=== PATIENT | male | born 1945 | race Caucasian/White ===

== ENCOUNTER 2017-02-07 09:11 | Day surgery (SDC) | payer OTHER ==
[~2017-02-07 09:11] MED LIST: Buffered Lidocaine 1% SYRIN* 3 ML/SYR SYRINGE INTRADERM ONE
[2017-02-07] MEDS ORDERED: Lidocaine 2% PF * 5 ML VIAL ONE (12:14)
[2017-02-07] MEDS ORDERED: Propofol* 10 MG/ML 20 ML BTL IV PUSH ONE (12:14)
[2017-02-07] MEDS ORDERED: Flurbiprofen 0.03% OPTH.SOL* 2.5 ML BTL ONE (12:51)
[2017-02-07] MEDS ORDERED: acetaZOLAMIDE TAB* 250 MG ONE (12:51)
[2017-02-07] MEDS ORDERED: Proparacaine 0.5% OPHTH.SOL* 15 ML BTL ONE (12:51)
[2017-02-07] MEDS ORDERED: Cyclopentolate 1% OPTH.SOL* 2 ML BTL ONE (12:51)
[2017-02-07] MEDS ORDERED: Lidocaine 2% EPI 1:200000 MPF* 20 ML VIAL ONE (12:51)
[2017-02-07] MEDS ORDERED: Povidone Iodine 5% OPTH* 30 ML BTL ONE (12:51)
[2017-02-07] MEDS ORDERED: Lidocaine 1% MPF* 2 ML VIAL ONE (12:51)
[2017-02-07] MEDS ORDERED: Phenylephrine 2.5% OPTH.SOL* 2 ML BTL ONE (12:51)
[2017-02-07] MEDS ORDERED: Neomycin/Polymy/Dex OPTH.SUSP* MAXITROL 0.1% 5 ML ONE (12:51)
[2017-02-07 12:53] VITALS: BP 106/86
--- NOTE | 2017-02-07 15:12 | OP ---
DATE OF OPERATION: 02/07/2017 - [facility] DATE OF : 1945. SURGEON: Isrrael Dangelo M.D. PREOPERATIVE DIAGNOSIS: Cataract right eye. POSTOPERATIVE DIAGNOSIS: Cataract right eye. OPERATIVE PROCEDURE: Phacoemulsification right eye with IOL. DESCRIPTION OF PROCEDURE: The patient was brought to the operating room after being given 1/2% Alcaine with epinephrine drops in the preoperative area. The eye was prepped and draped in the usual sterile fashion. Sterile drape and eyelid speculum were placed. Again, topical 1/2% Alcaine with epinephrine was given. A paracentesis incision was made at the 9 o'clock position with the No.75 blade. Clear cornea incision 2.2 x 2.2-mm was created at the 12 o'clock position starting at the anterior limbus using the 2.2-mm keratome. The anterior chamber was irrigated with 0.4 mL of 1% non-preservative intracameral lidocaine and filled with DisCoVisc. A capsulorrhexis was completed using the cystotome and the Utrata forceps. Hydrodissection was performed with balanced salt solution. The lens nucleus was removed with the Phacoemulsification handpiece without incident. Cortex was removed with the irrigation-aspiration handpiece. The capsular bag was re-inflated using DisCoVisc and an [id number] 19.5 implant was inserted with the shooter. The pupil was only about 4 mm, so a Malyugin ring was used to dilate the pupil prior to capsulorrhexis and removed after insertion of the lens. The irrigation-aspiration handpiece was used to remove all residual DisCoVisc. The eye was refilled with balanced salt solution and the wound checked and found to be watertight. Topical Maxitrol drops were given. Indication for complex cataract surgery: Iris abnormalities requiring pupil dilation device. [id number]/[facility] #: [id number] TEJA
== END 2017-02-07 12:59 | disposition home or self-care (01) ==
LOC: OREAST 09:11
PROVIDERS: ATTEND Specialist
DX: H25.811 Combined forms of age-related cataract, right eye (principal); Q13.2 Other congenital malformations of iris; H02.412 Mechanical ptosis of left eyelid; H53.022 Refractive amblyopia, left eye; I10 Essential (primary) hypertension; I25.10 Atherosclerotic heart disease of native coronary artery without angina pectoris; J44.9 Chronic obstructive pulmonary disease, unspecified; F17.210 Nicotine dependence, cigarettes, uncomplicated
CPT/HCPCS: A9270-GY; J2704; V2632

== ENCOUNTER 2017-07-29 13:52 | Emergency (ER) | payer OTHER ==
--- NOTE | 2017-07-29 15:57 | RAD ---
Indication: RIGHT hip pain radiating to the RIGHT leg. Comparison: March 06, 2016 CT. Technique: Multidetector CT pelvis without contrast. Multiplanar reformation with bone algorithm. Report: No suspicious finding of the visualized pelvic viscera. Partially visualized aorta bilateral iliac stent graft appears grossly unchanged in position. Negative for free pelvic fluid. Negative for lymphadenopathy within the [id number]. Negative for proximal femur or pelvic fracture. Normal articular alignment. Bilateral mild hip joint osteophytosis and moderate RIGHT and mild LEFT superior joint space narrowing. No suggestion of hip joint effusions. Mild degenerative arthropathy at the pubic symphysis. Minimal osteophytosis at the sacroiliac joints. IMPRESSION: 1. No CT evidence for proximal femur or pelvic fracture or traumatic malalignment. 2. 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 3. Refer to dedicated lumbar sacral spine exam of the same date for description of lumbar sacral spine findings.
--- NOTE | 2017-07-29 16:04 | RAD ---
Indication: RIGHT side hip pain radiating down the RIGHT leg. Comparison: March 06, 2016 CT. Technique: Noncontrast CT lumbar sacral spine. Multiplanar reformation. Report: Aortic bilateral iliac stent graft extends from above the level of the renal arteries and appears unchanged in position. Bilateral renal artery stents are unchanged in position. Marked atrophy of the RIGHT kidney. Partially visualized normal sized LEFT kidney without obstructive uropathy. Negative for retroperitoneal hematoma. No visualized adenopathy. Negative for fracture or spondylolysis at any level. T12-L1: Mild degenerative spondylosis. Negative for acquired spinal stenosis. L1-L2: Mild degenerative spondylosis and facet joint osteoarthritis. Small Schmorl node endplate herniations. Negative for acquired spinal stenosis. L2-L3: Moderately severe disc space narrowing and minimal grade 1 degenerative retrolisthesis. Mild dorsal disc bulge and osteophytes as well as facet joint osteoarthritis. Resulting mild RIGHT and moderate LEFT foraminal stenosis without significant change. L3-L4: Moderate disc space narrowing. Mild dorsal disc bulge and vertebral endplate osteophytes and facet joint osteoarthritis. Alteration in the shape of the thecal sac without significant resulting central canal stenosis. Mild RIGHT and moderate LEFT foraminal stenosis without significant change. L4-L5: Mild disc space narrowing. Annular disc bulge and posterior element osteoarthritis results in mild acquired central canal stenosis without significant change. Moderate bilateral foraminal stenosis without significant change. L5-S1: Moderately severe disc space narrowing. Partially calcified small broad dorsal disc protrusion without change. Negative for central canal stenosis. Degenerative spondylosis and facet joint osteoarthritis results in moderate RIGHT and severe LEFT foraminal stenosis without change. IMPRESSION: 1. Negative for fracture. 2. No significant change in minimal degenerative grade 1 retrolisthesis at L2-L3. 3. Multilevel degenerative spondylosis and facet joint osteoarthritis with resulting foraminal greater than central canal stenosis as described level by level. No significant interval change.
--- NOTE | 2017-07-29 17:08 | ED ---
Vicky Tapia Abhishek, scribed for Tressa Lentz MD on 07/29/17 at 1648 . Lower Extremity - HPI Summary HPI Summary: This patient is a 72 year old M presenting to [facility] with a chief complaint of hip pain since the last 10 days (1200). The CC is described as radiating from the hip to the jamison to the leg and sudden onset as well as constant. The patient rates the pain 9/10 in severity. Symptoms aggravated by movement. Symptoms alleviated by nothing. Patient states he has difficulty walking. - History of Current Complaint Chief Complaint: EDHipPelvisInjury Stated Complaint: RT SIDE HIP/THIGH/ANKLE PAIN Time Seen by Provider: 07/29/17 14:09 Hx Obtained From: Patient Onset of Pain: Days - 10 days ago Onset/Duration: Still Present Severity Initially: Severe Severity Currently: Severe Pain Intensity: 9 Pain Scale Used: 0-10 Numeric Timing: Constant Location: Radiates To - the Associated Signs And Symptoms: Positive: Negative Aggravating Factor(s): Ambulation, Movement Alleviating Factor(s): Nothing - Allergies/Home Medications Allergies/Adverse Reactions: Allergies Allergy/AdvReac Type Severity Reaction Status Date / Time ANTIDEPRESSANTS Allergy Hallucinati Uncoded 07/29/17 14:06 ons OPIATES Allergy Unknown Uncoded 07/29/17 14:06 Reaction Details PMH/Surg Hx/FS Hx/Imm Hx Endocrine/Hematology History: Reports: Hx Anticoagulant Therapy, Hx Thyroid Disease - PARTIAL THYROIDECTOMY Denies: Hx Diabetes Cardiovascular History: Reports: Hx Congestive Heart Failure, Hx Coronary Artery Disease, Hx Hypertension - controlled with medication, Hx Pacemaker/ICD, Other Cardiovascular Problems/Disorders - ABDOMINAL AORTIC ANYURISM, 2014 Respiratory History: Reports: Hx Chronic Obstructive Pulmonary Disease (COPD) Denies: Hx Asthma GI History: Reports: Hx Irritable Bowel Denies: Hx Ulcer History: Denies: Hx Kidney Stones Musculoskeletal History: Reports: Hx Arthritis - LEFT SHOULDER Sensory History: Reports: Hx Cataracts Denies: Hx Contacts or Glasses, Hx Hearing Aid Opthamlomology History: Reports: Hx Cataracts Denies: Hx Contacts or Glasses Neurological History: Reports: Hx Nerve Disease - TWITCHES - WILL BE TESTED SOON , Other Neuro Impairments/Disorders - mood disorder see a therapist, [place] Psychiatric History: Reports: Hx Anxiety - EXTREME, Hx Depression - EXTREME - Surgical History Surgery Procedure, Year, and Place: PARTIAL THYROIDECTOMY Hx Anesthesia Reactions: No Infectious Disease History: No Infectious Disease History: Denies: Traveled Outside the [place] in Last 30 Days - Family History Known Family History: Positive: Hypertension - Social History Occupation: Retired - [employer] Alcohol Use: None Substance Use Type: Reports: None Smoking Status (MU): Former Smoker Amount Used/How Often: 1 PPD FOR 50 YRS Review of Systems Constitutional: Negative Eyes: Negative ENT: Negative Cardiovascular: Negative Respiratory: Negative Gastrointestinal: Negative Genitourinary: Negative Positive: Other - hip pain which radiates to the jamison and up the leg Skin: Negative Positive: Weakness - Patient has difficulty walking. Psychological: Normal All Other Systems Reviewed And Are Negative: Yes Physical Exam - Summary Physical Exam Summary: General: Well appearing, no pain distress Skin: Warm, Skin Color Reflects Adequate Perfusion, Dry Eyes: EOMI, MAXX ENT: Pharynx normal, TMs normal Neck: Supple, nontender Respiratory: CTA, breath sounds present, no rhonchi, no wheezes, no rales Cardiovascular: RRR, no murmur, no rub, no gallop Abdomen: Soft, nontender, Non-distended, no guarding, no rebound Bowel: Present Musculoskeletal: No claudication signs No back tenderness Neuro: Sensory/motor intact, A&Ox3, CN intact 2-12 Psych: Affect/mood appropriate Triage Information Reviewed: Yes Vital Signs On Initial Exam: Initial Vitals Temp Pulse Resp BP Pulse Ox 98.4 F 65 17 150/87 96 07/29/17 13:59 07/29/17 13:59 07/29/17 13:59 07/29/17 13:59 07/29/17 13:59 Vital Signs Reviewed: Yes - Springer Coma Scale Coma Scale Total: 15 Diagnostics - Vital Signs Vital Signs Temp Pulse Resp BP Pulse Ox 07/29/17 15:26 60 98 07/29/17 14:30 60 111/68 97 07/29/17 14:18 89 98 07/29/17 14:16 165/85 07/29/17 13:59 98.4 F 65 17 150/87 96 - Laboratory Lab Statement: Any lab studies that have been ordered have been reviewed, and results considered in the medical decision making process. - CT Pelvis CT CT Interpretation Completed By: Radiologist - Pelvis CT reveals 1. No CT evidence for proximal femur or pelvic fracture or traumatic malalignment. 2. 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 3. Refer to dedicated lumbar sacral spine exam of the same date for description of lumbar sacral spine findings. ED physician has reviewed this radiology report and agrees. CT Spine CT Interpretation Completed By: Radiologist - Lumbar Spine CT reveals 1. Negative for fracture. 2. No significant change in minimal degenerative grade 1 retrolisthesis at L2-L3. 3. Multilevel degenerative spondylosis and facet joint osteoarthritis with resulting foraminal greater than central canal stenosis as described level by level. No significant interval change. ED physician has reviewed this radiology report and agrees. Lower Extremity Course/Dx - Course Course Of Treatment: 72 yo male with known pvd but here with right hip and leg pain with good pulses (no claudication or at rest pain by history) with CT findings of diffuse facet issues - Diagnoses Provider Diagnoses: Radiculopathy due to lumbar intervertebral disc disorder Discharge - Discharge Plan Condition: Stable Disposition: HOME Prescriptions: Tramadol 50 MG # 6 TAB PREPAK 50 mg PO Q6H #12 tab MDD 4 Patient Education Materials: Sciatica (ED) Referrals: Jakub Mejia MD [Primary Care Provider] - (Follow up with primary care as needed.) The documentation as recorded by the Vicky oreilly Abhishek accurately reflects the service I personally performed and the decisions made by , Tressa Lentz MD.
[2017-07-29 17:16] VITALS: BP 127/72
== END 2017-07-29 17:17 | disposition home or self-care (01) ==
LOC: ED 13:52
DX: M54.16 Radiculopathy, lumbar region (principal); M51.86 Other intervertebral disc disorders, lumbar region; Z87.891 Personal history of nicotine dependence; Z79.01 Long term (current) use of anticoagulants; Z86.79 Personal history of other diseases of the circulatory system
CPT/HCPCS: 72131; 72192; 99282

== ENCOUNTER 2017-07-31 12:22 | Emergency (ER) | payer OTHER ==
--- NOTE | 2017-07-31 13:49 | RAD ---
HISTORY: Rib pain status post fall COMPARISONS: June 28, 2017 VIEWS: 7, Frontal view of the chest with frontal and oblique views of the left hemithorax FINDINGS: There are chronic fractures of the right hemithorax. There is no acute displaced rib fracture. There is no pneumothorax. There are calcified granulomas of the lung left-sided pacemaker is noted. A vascular stent is noted. IMPRESSION: NO ACUTE DISPLACED RIB FRACTURE OR PNEUMOTHORAX.
[2017-07-31] MEDS ORDERED: Ketorolac INJ* 30 MG/ML 1 ML VIAL IM ONE (14:47)
--- NOTE | 2017-07-31 15:18 | ED ---
Marques Tapia Benjamin, scribed for Celestino Sorto MD on 07/31/17 at 1317 . Complex/Multi-Sys Presentation - HPI Summary HPI Summary: 72yo male c/o left rib pain after a mechanical fall last night. Pt has hx of spinal stenosis and chronic hip pain, and last night, pt fell after his legs giving up. Pt now reports left rib pain and pain when taking deep breath. Pt also has chronic left shoulder pain. - History Of Current Complaint Chief Complaint: EDGeneral Time Seen by Provider: 07/31/17 12:31 Hx Obtained From: Patient Onset/Duration: Sudden Onset, Lasting Days - 1 day, Still Present Timing: Constant Severity Currently: Moderate Severity Initially: Moderate Location: Pain At: - right ribs Associated Signs And Symptoms: Positive: Other - difficulty breathing due to rib pain - Allergies/Home Medications Allergies/Adverse Reactions: Allergies Allergy/AdvReac Type Severity Reaction Status Date / Time ANTIDEPRESSANTS Allergy Hallucinati Uncoded 07/29/17 14:06 ons OPIATES Allergy Unknown Uncoded 07/29/17 14:06 Reaction Details Home Medications: Home Medications Aspirin EC Low Dose* [Ecotrin EC Low Dose 81 MG*] 81 mg PO DAILY 07/31/17 [ History Confirmed 07/31/17] Atenolol TAB* [Tenormin TAB* 50 MG] 50 mg PO DAILY 07/31/17 [History Confirmed 07/31/17] Bisacodyl SUPP* [Dulcolax Supp*] 10 mg MD THSA PRN 07/31/17 [History Confirmed 07/31/17] Carboxymethylcellulos 1% OPTH* [Celluvisc 1% OPTH*] 1 drop BOTH EYES QID [History Confirmed 07/31/17] Esomeprazole(NF) [NEXium(NF)] 20 mg PO BID 07/31/17 [History Confirmed 07/31/17] Fluticasone NASAL SPRAY 50MCG* [Flonase NASAL SPRAY 50MCG*] 2 spray BOTH NARES QAM 07/31/17 [History Confirmed 07/31/17] Folic Acid TAB* [Folvite TAB*] 1 mg PO DAILY 07/31/17 [History Confirmed ] Gaviscon CHEW TAB* 2 tab.chew PO QID WITH FOOD PRN 07/31/17 [History Confirmed 07/31/17] Ketotifen Fumarate (Ophth) [Zaditor] 0.025 % BOTH EYES BID PRN 07/31/17 [ History Confirmed 07/31/17] LORazepam TAB(*) [Ativan 1 MG TAB (*)] 1 mg PO BID PRN 07/31/17 [History Confirmed 07/31/17] Lactobacillus [Lactinex] 1 chw PO BID PRN 07/31/17 [History Confirmed 07/31/17] Levothyroxine TAB* [Synthroid TAB*] 100 mcg PO QAM 07/31/17 [History Confirmed 07/31/17] Lequire Carbonate ER TAB* 450 mg PO BEDTIME 07/31/17 [History Confirmed 07/31/17 ] Multivitamins/Minerals TAB* [Theragran/minerals TAB*] 1 tab PO DAILY 07/31/17 [ History Confirmed 07/31/17] Nutritional Supplements [Ensure] 1 pow PO TID 07/31/17 [History Confirmed ] Polyethylene Glycol 3350* [Miralax*] 17 gm PO DAILY PRN 07/31/17 [History Confirmed 07/31/17] Pravastatin (NF) [Pravachol (NF)] 40 mg PO DAILY 07/31/17 [History Confirmed ] Salsalate TAB* [Disalcid*] 500 mg PO DAILY PRN 07/31/17 [History Confirmed 07/31] Senna/Docusate (NF) [Sennokot-S] 1 tab PO BID PRN 07/31/17 [History Confirmed ] Tamsulosin CAP* [Flomax CAP*] 0.4 mg PO DAILY 07/31/17 [History Confirmed ] Trospium (NF) [Sanctura (NF)] 20 mg PO BID 07/31/17 [History Confirmed 07/31/17] traMADol TAB* [Ultram*] 50 mg PO QID PRN 07/31/17 [History Confirmed 07/31/17] PMH/Surg Hx/FS Hx/Imm Hx Endocrine/Hematology History: Reports: Hx Anticoagulant Therapy, Hx Thyroid Disease - PARTIAL THYROIDECTOMY Denies: Hx Diabetes Cardiovascular History: Reports: Hx Congestive Heart Failure, Hx Coronary Artery Disease, Hx Hypertension - controlled with medication, Hx Pacemaker/ICD, Other Cardiovascular Problems/Disorders - ABDOMINAL AORTIC ANYURISM, 2014 Respiratory History: Reports: Hx Chronic Obstructive Pulmonary Disease (COPD) Denies: Hx Asthma GI History: Reports: Hx Irritable Bowel Denies: Hx Ulcer History: Denies: Hx Kidney Stones Musculoskeletal History: Reports: Hx Arthritis - LEFT SHOULDER Sensory History: Reports: Hx Cataracts Denies: Hx Contacts or Glasses, Hx Hearing Aid Opthamlomology History: Reports: Hx Cataracts Denies: Hx Contacts or Glasses Neurological History: Reports: Hx Nerve Disease - TWITCHES - WILL BE TESTED SOON , Other Neuro Impairments/Disorders - mood disorder see a therapist, [place] Psychiatric History: Reports: Hx Anxiety - EXTREME, Hx Depression - EXTREME - Surgical History Surgery Procedure, Year, and Place: PARTIAL THYROIDECTOMY Hx Anesthesia Reactions: No Infectious Disease History: No Infectious Disease History: Denies: Traveled Outside the [place] in Last 30 Days - Family History Known Family History: Positive: Hypertension - Social History Alcohol Use: None Substance Use Type: Reports: None Smoking Status (MU): Never Smoked Tobacco Amount Used/How Often: 1 PPD FOR 50 YRS Review of Systems Constitutional: Negative Eyes: Negative ENT: Negative Cardiovascular: Negative Positive: Other - difficulty breathing due to rib pain Gastrointestinal: Negative Genitourinary: Negative Positive: Arthralgia - chronic hip and left shoulder pain, Other - left rib pain Skin: Negative Neurological: Negative Psychological: Normal All Other Systems Reviewed And Are Negative: Yes Physical Exam - Summary Physical Exam Summary: VITAL SIGNS: Reviewed. GENERAL: Patient is a well-developed and nourished elderly male who is lying comfortable in the stretcher. Patient is not in any acute respiratory distress. HEAD AND FACE: No signs of trauma. No ecchymosis, hematomas or skull depressions. No sinus tenderness. EYES: PERRLA, EOMI x 2, No injected conjunctiva, no nystagmus. EARS: Hearing grossly intact. Ear canals and tympanic membranes are within normal limits. MOUTH: Oropharynx within normal limits. NECK: Supple, trachea is midline, no adenopathy, no JVD, no carotid bruit, no c- spine tenderness, neck with full ROM. CHEST: Symmetric, no tenderness at palpation. Tender in left ribcage area posterior to the mid axillary line. LUNGS: Clear to auscultation bilaterally. No wheezing or crackles. CVS: Regular rate and rhythm, S1 and S2 present, no murmurs or gallops appreciated. ABDOMEN: Soft, non-tender. No signs of distention. No rebound no guarding, and no masses palpated. Bowel sounds are normal. EXTREMITIES: FROM in all major joints, no edema, no cyanosis or clubbing. NEURO: Alert and oriented x 3. No acute neurological deficits. Speech is normal and follows commands. SKIN: Dry and warm. no bruises or no ecchymosis. Triage Information Reviewed: Yes Vital Signs On Initial Exam: Initial Vitals Temp Pulse Resp BP Pulse Ox 97.6 F 62 20 137/82 100 07/31/17 12:25 07/31/17 12:25 07/31/17 12:25 07/31/17 12:25 07/31/17 12:25 Vital Signs Reviewed: Yes - Cezar Coma Scale Coma Scale Total: 14 Diagnostics - Vital Signs Vital Signs Temp Pulse Resp BP Pulse Ox 07/31/17 12:25 97.6 F 62 20 137/82 100 - Laboratory Lab Statement: Any lab studies that have been ordered have been reviewed, and results considered in the medical decision making process. - Radiology Ribs with Chest XR Xray Interpretation: No Acute Changes - IMPRESSION: NO ACUTE DISPLACED RIB FRACTURE OR PNEUMOTHORAX. Radiology Interpretation Completed By: Radiologist - ED physician has reviewed this radiology report and agrees. Complex Multi-Symp Course/Dx Assessment/Plan: In the ED course an IV access was obtained. Patient was placed in a air sampling and monitoring. Rib x rays negative for fracture or dislocation. I discussed all the findings and test results with the patient. Patient was instructed to return to the emergency room immediately if any of the symptoms return or worsens. Plan of care was discussed with the patient and understands and agrees. All questions were answered at patient satisfaction. There were no further complaints or concerns. Lung exam before discharge: CTA B/L. Good air exchange. No wheezing or crackles heard. CVS: S1 and S2 present. No murmurs appreciated. Patient is alert and oriented x 3. Patient is hemodynamically stable. Patient will be discharged home with follow up PCP in the next 2-3 days - Diagnoses Differential Diagnoses/HQI/PQRI: Other - Rib contusion, accidental fall Provider Diagnoses: Rib pain on right side Discharge - Discharge Plan Condition: Stable Disposition: HOME Patient Education Materials: Rib Contusion (ED) Referrals: Jakub Mejia MD [Primary Care Provider] - The documentation as recorded by the Marques oreilly Benjamin accurately reflects the service I personally performed and the decisions made by me, Celestino Sorto MD.
[2017-07-31 15:19] VITALS: BP 156/89
== END 2017-07-31 15:27 | disposition home or self-care (01) ==
LOC: ED 12:22
DX: R07.81 Pleurodynia (principal); Z87.891 Personal history of nicotine dependence; W19.XXXA Unspecified fall, initial encounter; Y92.9 Unspecified place or not applicable; M25.512 Pain in left shoulder; G89.29 Other chronic pain
CPT/HCPCS: 96372; 99281; J1885

== ENCOUNTER 2017-08-04 11:06 | Emergency (ER) | payer OTHER ==
[2017-08-04] MEDS ORDERED: HYDROcodone/ACETAMIN 5-325 MG* 1 TAB PO ONE (13:11)
--- NOTE | 2017-08-04 13:17 | ED ---
Speedy Tapia Thomas, scribed for Tereso Bowser MD on 08/04/17 at 1243 . Lower Extremity - HPI Summary HPI Summary: The pt is a 72 y/o M presenting to the ED c/o chronic right hip pain that significantly worsened four days ago. He had an accidental fall three days ago after my right leg felt numb. He fell down three or four steps. He struck his L-sided ribs on the ground during this fall. The pain is constant. The pain is described as pinching. The pain is rated 10/10. The pain is aggravated by movement, walking, and sitting up. It is alleviated by nothing. The patient has treated the pain with Tramadol LEARNING SUPPORT ASSISTANT. He says that his right leg gives out but it is unclear whether this is secondary to weakness or pain. Pt additionally c/o chronic L shoulder pain. Pt denies numbness and back pain. He feels unsecure with walking. He has attempted to use a cane to get around since onset of pain, but this has not helped him. He was a patient at [facility] four days ago. He had a CT L-Spine and a CT Pelvis done on 07/29/17. He had a CXR with ribs on . This pain has been evaluated by his primary care physician as well. The patient is accompanied by a female. PMHx includes AAA. - History of Current Complaint Chief Complaint: EDExtremityLower Stated Complaint: PAIN IN RT LEG,DIFFICULTY BREATHING Time Seen by Provider: 08/04/17 12:28 Hx Obtained From: Patient, Family/Funeral Driver - female is present Onset of Pain: Days - pain is chronic but worsened four days ago Onset/Duration: Still Present Severity Currently: Severe Pain Intensity: 10 Pain Scale Used: 0-10 Numeric Timing: Constant Location: Is Discrete @ - R hip, L-sided ribs Associated Signs And Symptoms: Positive: Other - chronic L shoulder pain, L- sided rib pain Aggravating Factor(s): Movement Alleviating Factor(s): Nothing - Allergies/Home Medications Allergies/Adverse Reactions: Allergies Allergy/AdvReac Type Severity Reaction Status Date / Time ANTIDEPRESSANTS Allergy Hallucinati Uncoded 07/29/17 14:06 ons OPIATES Allergy Unknown Uncoded 07/29/17 14:06 Reaction Details PMH/Surg Hx/FS Hx/Imm Hx Previously Healthy: No Endocrine/Hematology History: Reports: Hx Anticoagulant Therapy, Hx Thyroid Disease - PARTIAL THYROIDECTOMY Denies: Hx Diabetes Cardiovascular History: Reports: Hx Congestive Heart Failure, Hx Coronary Artery Disease, Hx Hypertension - controlled with medication, Hx Pacemaker/ICD, Other Cardiovascular Problems/Disorders - ABDOMINAL AORTIC ANYURISM, 2015 Respiratory History: Reports: Hx Chronic Obstructive Pulmonary Disease (COPD) Denies: Hx Asthma GI History: Reports: Hx Irritable Bowel Denies: Hx Ulcer History: Denies: Hx Kidney Stones Musculoskeletal History: Reports: Hx Arthritis - LEFT SHOULDER Sensory History: Reports: Hx Cataracts Denies: Hx Contacts or Glasses, Hx Hearing Aid Opthamlomology History: Reports: Hx Cataracts Denies: Hx Contacts or Glasses Neurological History: Reports: Hx Nerve Disease - TWITCHES - WILL BE TESTED SOON , Other Neuro Impairments/Disorders - mood disorder see a therapist, [place] Psychiatric History: Reports: Hx Anxiety - EXTREME, Hx Depression - EXTREME - Surgical History Surgery Procedure, Year, and Place: PARTIAL THYROIDECTOMY Hx Anesthesia Reactions: No Infectious Disease History: No Infectious Disease History: Denies: Traveled Outside the [place] in Last 30 Days - Family History Known Family History: Positive: Hypertension - Social History Alcohol Use: None Substance Use Type: Reports: None Smoking Status (MU): Never Smoked Tobacco Amount Used/How Often: 1 PPD FOR 50 YRS Review of Systems Negative: Fever Positive: Other - R hip pain, chronic L shoulder pain, L-sided rib pain; NEGATIVE: back pain Negative: Numbness All Other Systems Reviewed And Are Negative: Yes Physical Exam - Summary Physical Exam Summary: General: well-appearing, no pain distress Skin: warm, color reflects adequate perfusion, dry Head: normal Eyes: EOMI, MAXX ENT: normal Neck: supple, nontender Respiratory: CTA, breath sounds present Cardiovascular: RRR Abdomen: soft, nontender Bowel: present Musculoskeletal: strength/ROM intact. No midline spinal tenderness. Mildly tender left lower lateral ribs. FROM both legs. Strength is 5/5 with both legs. Pain with ROM on the right hip. When he tries to walk, the left hip gives out. Neurological: sensory/motor intact, A&O x3. Patellar reflexes on left 2+, 1+ right. Psychological: affect/mood appropriate Triage Information Reviewed: Yes Vital Signs On Initial Exam: Initial Vitals Temp Pulse Resp BP Pulse Ox 98.2 F 134 20 109/93 100 08/04/17 11:18 08/04/17 11:18 08/04/17 11:18 08/04/17 11:18 08/04/17 11:18 Vital Signs Reviewed: Yes Diagnostics - Vital Signs Vital Signs Temp Pulse Resp BP Pulse Ox 08/04/17 11:18 98.2 F 134 20 109/93 100 - Laboratory Lab Statement: Any lab studies that have been ordered have been reviewed, and results considered in the medical decision making process. Lower Extremity Course/Dx - Course Course Of Treatment: Medications reviewed. Allergies noted. DISCUSSED RESULTS OF RECENT LUMBAR/PELVIS/RIB IMAGING WITH PATIENT. NO SIGNIFICANT CHANGE IN LUMBAR FROM 2016 CT. NO BACK PAIN NOW. PAIN IS PINCHING IN THE RT HIP. WHEN USING THE WALKER, NO FOOT DROP, NO WEAKNESS/NUMBNESS. IT APPEARS THE RT HIP GIVES OUT WITH PAIN. NORMAL VASCULAR EXAM/ABD SOFT/NT. RECENT ANEURYSM EVAL BY CT AT THE [facility]; PATIENT REPORTS IT WAS FINE. GAVE #6 NORCO TO GO, NO NEW RX; WILL [facility]. - Diagnoses Provider Diagnoses: Right hip pain, Contusion of rib on left side Discharge - Discharge Plan Condition: Stable Disposition: HOME Patient Education Materials: Hip Pain (ED), Rib Contusion (ED) Referrals: Jakub Mejia MD [Primary Care Provider] - Additional Instructions: FOLLOW UP WITH YOUR [facility] ON 08/06/17, SCHEDULED. RETURN TO THE EMERGENCY DEPARTMENT FOR ANY WORSENING OF YOUR CONDITION; WEAKNESS , NUMBNESS, DIFFICULTY CONTROLLING BOWEL OR BLADDER OR QUESTIONS OR CONCERNS. The documentation as recorded by the Speedy oreilly Thomas accurately reflects the service I personally performed and the decisions made by me, Tereso Bowser MD.
[2017-08-04 13:28] VITALS: BP 110/88
== END 2017-08-04 13:26 | disposition home or self-care (01) ==
LOC: ED 11:06
DX: S20.20XA Contusion of thorax, unspecified, initial encounter (principal); W10.9XXA Fall (on) (from) unspecified stairs and steps, initial encounter; Y93.9 Activity, unspecified; Y92.9 Unspecified place or not applicable; M25.551 Pain in right hip; M25.512 Pain in left shoulder; E07.9 Disorder of thyroid, unspecified; I25.10 Atherosclerotic heart disease of native coronary artery without angina pectoris; I10 Essential (primary) hypertension; I50.9 Heart failure, unspecified; Z95.0 Presence of cardiac pacemaker; I71.4 Abdominal aortic aneurysm, without rupture; J44.9 Chronic obstructive pulmonary disease, unspecified; Z79.01 Long term (current) use of anticoagulants; F41.9 Anxiety disorder, unspecified; F32.9 Major depressive disorder, single episode, unspecified; E89.0 Postprocedural hypothyroidism; Z88.5 Allergy status to narcotic agent; Z88.8 Allergy status to other drugs, medicaments and biological substances
CPT/HCPCS: 99282

== ENCOUNTER 2018-07-01 15:13 | Emergency (ER) | payer OTHER ==
[2018-07-01] MEDS ORDERED: Lidocain 1% EPI 1:100,000 * 30 ML MDV INJ ONE (15:44)
[2018-07-01 16:32] LABS: ABS Basophils 0 10^3/ul (0-0.2); ABS Eosinophils 0.1 10^3/ul (0-0.6); ABS Lymphocytes 0.9 10^3/ul (1.0-4.8); ABS Monocytes 0.6 10^3/ul (0-0.8); ABS Neutrophils 4.9 10^3/ul (1.5-7.7); ABS Nucleated RBC 0 10^3/ul; Eosinophil % 1.9 % (0-6); Hematocrit 40 % (42-52); Hemoglobin 13.4 g/dl (14.0-18.0); Lymphocyte % 14.4 % (25-47); Mean Corpuscular HGB Conc 34 g/dl (31-36); Mean Corpuscular Hemoglobin 32 pg (27-31); Mean Corpuscular Volume 94 fL (80-94); Nucleated Red Blood Cells % 0.1; Platelet Count 204 10^3/ul (150-450); Red Blood Count 4.26 10^6/ul (4.00-5.40); Red Cell Distribution Width 13 % (10.5-15); White Blood Count 6.5 10^3/ul (3.5-10.8)
--- NOTE | 2018-07-01 16:58 | ED ---
Head Injury - HPI Summary HPI Summary: Patient is a 73-year-old male who presents emergency department for evaluation for facial/head injury that occurred just prior to arrival. Pt. states he was walking in town going to [employer] when he fell and struck his face on the sidewalk. Patient is unclear exactly why he fell but believes he tripped over his feet. Patient does not believe he syncopized but is not completely sure. Patient denies prior current chest pain, shortness of breath, abdominal pain, vomiting, diarrhea, urinary symptoms, recent illness. Past medical history of coronary disease, high blood pressure, high cholesterol, PTSD, COPD. Is not anticoagulated. Symptoms are moderate in severity. Associated symptoms of laceration to face. - History Of Current Complaint Chief Complaint: EDHeadInjury Stated Complaint: FALL/HEAD INJURY Time Seen by Provider: 07/01/18 15:33 Hx Obtained From: Patient Pain Intensity: 10 - Allergies/Home Medications Allergies/Adverse Reactions: Allergies Allergy/AdvReac Type Severity Reaction Status Date / Time ANTIDEPRESSANTS AdvReac Hallucinati Uncoded 10/12/17 11:29 ons OPIATES AdvReac Unknown Uncoded 10/12/17 11:29 Reaction Details PMH/Surg Hx/FS Hx/Imm Hx Previously Healthy: Yes Endocrine/Hematology History: Reports: Hx Anticoagulant Therapy, Hx Thyroid Disease - PARTIAL THYROIDECTOMY Denies: Hx Diabetes Cardiovascular History: Reports: Hx Congestive Heart Failure, Hx Coronary Artery Disease, Hx Hypertension - controlled with medication, Hx Pacemaker/ICD, Other Cardiovascular Problems/Disorders - ABDOMINAL AORTIC ANYURISM, 2014 Respiratory History: Reports: Hx Chronic Obstructive Pulmonary Disease (COPD) Denies: Hx Asthma GI History: Reports: Hx Irritable Bowel Denies: Hx Ulcer History: Reports: Other Problems/Disorders - cyst on kidney Denies: Hx Kidney Stones Musculoskeletal History: Reports: Hx Arthritis - SHOULDER, Hx Back Problems Sensory History: Reports: Hx Cataracts, Hx Contacts or Glasses, Other Sensory Impairments - dentures Denies: Hx Hearing Aid Opthamlomology History: Reports: Hx Cataracts, Hx Contacts or Glasses, Other Sensory Impairments - dentures Neurological History: Reports: Hx Headaches, Hx Nerve Disease - TWITCHES, Other Neuro Impairments/Disorders - some dizziness and nausea in the past few months, PAIN CLINIC PT Psychiatric History: Reports: Hx Anxiety - EXTREME, Hx Depression - EXTREME, Other Psychiatric Issues/Disorders - MAGGIE - Surgical History Surgery Procedure, Year, and Place: PARTIAL THYROIDECTOMY. [facility] 2016 [facility] [place] cataracts Hx Anesthesia Reactions: No - Immunization History Immunizations Up to Date: Yes Infectious Disease History: No Infectious Disease History: Denies: Traveled Outside the [place] in Last 30 Days - Family History Known Family History: Positive: Hypertension - Social History Occupation: Retired Lives: With Family Alcohol Use: None Substance Use Type: Reports: None Smoking Status (MU): Former Smoker Amount Used/How Often: 1 PPD FOR 50 YRS Review of Systems Constitutional: Negative Negative: Fever, Chills Eyes: Negative Positive: Other - chronic droopy left eyelid ENT: Negative Cardiovascular: Negative Negative: Palpitations, Chest Pain Respiratory: Negative Negative: Shortness Of Breath, Cough Gastrointestinal: Negative Negative: Abdominal Pain, Vomiting, Diarrhea, Nausea Genitourinary: Negative Musculoskeletal: Negative Positive: Other - facial lacerations Positive: Headache. Negative: Weakness, Paresthesia, Numbness All Other Systems Reviewed And Are Negative: Yes Physical Exam Triage Information Reviewed: Yes Vital Signs On Initial Exam: Initial Vitals Temp Pulse Resp BP Pulse Ox 97.7 F 79 18 139/84 97 07/01/18 15:19 07/01/18 15:19 07/01/18 15:19 07/01/18 15:19 07/01/18 15:19 Vital Signs Reviewed: Yes Appearance: Positive: Well-Appearing - Patient lying in bed in no acute distress. Texting on his cell phone. Skin: Positive: Warm, Dry Head/Face: Positive: Other - 3 cm deep laceration noted above left eyebrow. 2 cm superficial laceration noted below left eye. Eyes: Positive: Normal, EOMI, MAXX, Conjunctiva Clear, Other: - Chronic drooping eyelid. Extraocular muscles are intact. Neck: Positive: Supple Respiratory/Lung Sounds: Positive: Clear to Auscultation, Breath Sounds Present Cardiovascular: Positive: Normal, RRR Abdomen Description: Positive: Nontender, Soft Musculoskeletal: Positive: Normal, Strength/ROM Intact, Other - Abrasions to left hand without pain. Neurological: Positive: Normal, Alert, Oriented to Person Place, Time, CN Intact II-III, Facial Symmetry, Speech Normal Psychiatric: Positive: Affect/Mood Appropriate - [place] Coma Scale Best Eye Response: 4 - Spontaneous Best Motor Response: 6 - Obeys Commands Best Verbal Response: 5 - Oriented Coma Scale Total: 15 Procedures - Laceration/Wound Repair 1 Location: face Description: Irregular Anesthesia: Local, 1.0%, Lido - 5cc, Epi Length, Depth and Shape: 3cm full thickness irregular Betadine Prep?: No - hibiclens Laceration/Wound Explored: clean Closure: Single Layer - 4-0 Suture Type: Nylon Number of Sutures: 5 Layer Closure?: No Sterile Dressing Applied?: Yes 2 Location: face - below left eye Description: Linear Anesthesia: Local, 1.0%, Epi - 1cc Length, Depth and Shape: 2 cm full thickness linear Betadine Prep?: No - hibiclens Laceration/Wound Explored: clean Closure: Single Layer Suture Type: Nylon - 5-0 Number of Sutures: 5 Layer Closure?: No Sterile Dressing Applied?: Yes Diagnostics - Vital Signs Vital Signs Temp Pulse Resp BP Pulse Ox 07/01/18 15:19 97.7 F 79 18 139/84 97 - Laboratory Lab Results: Lab Results 07/01/18 Range/Units 16:23 WBC 6.5 (3.5-10.8) 10^3/ul RBC 4.26 (4.00-5.40) 10^6/ul Hgb 13.4 L (14.0-18.0) g/dl Hct 40 L (42-52) % MCV 94 (80-94) fL MCH 32 H (27-31) pg MCHC 34 (31-36) g/dl RDW 13 (10.5-15) % Plt Count 204 (150-450) 10^3/ul MPV 7.0 L (7.4-10.4) um3 Neut % (Auto) 74.4 (38-83) % Lymph % (Auto) 14.4 L (25-47) % [place] % (Auto) 8.6 H (0-7) % Eos % (Auto) 1.9 (0-6) % Baso % (Auto) 0.7 (0-2) % Absolute Neuts (auto) 4.9 (1.5-7.7) 10^3/ul Absolute Lymphs (auto) 0.9 L (1.0-4.8) 10^3/ul Absolute Monos (auto) 0.6 (0-0.8) 10^3/ul Absolute Eos (auto) 0.1 (0-0.6) 10^3/ul Absolute Basos (auto) 0 (0-0.2) 10^3/ul Absolute Nucleated RBC 0 10^3/ul Nucleated RBC % 0.1 Result Diagrams: 07/01/18 16:23 07/01/18 16:23 Lab Statement: Any lab studies that have been ordered have been reviewed, and results considered in the medical decision making process. Head Injury Course/Dx Course Of Treatment: Patient presenting to the ER for facial injuries after a fall. Questionable syncopal episode. Patient is afebrile with stable vital signs. He has no neurological deficits on exam and is overall well-appearing. He believes his tetanus is up-to-date and sees the [place] [facility] regularly but is unsure. Will check basic labs and obtain imaging. CBC unremarkable. CMP shows ongoing renal insufficiency. Negative trop. Head and neck CTs are negative for acute findings. Face CT shows questionable nasal bridge fx, pt. has a small overlying abrasion to nasal bridge without pain. CXR negative for acute findings. ECG done at 1553 shows paced rhythm of 67 bpm. Facial lacerations repaired as noted above. Tetanus updated. Advised close f.u with PCP and suture removal in 5-7 days. To keep wound clean dry. To return to ER for new sxs, redness, swelling or drainage. Pt. understands and agrees with plan. - Diagnoses Differential Diagnosis/HQI/PQRI: Cerebral Contusion, Cervical Sprain, Concussion With LOC, Contusion, Hematoma, Intracranial Bleed, Laceration, Orbital Fracture, Skull Fracture, Zygomatic Fracture Provider Diagnoses: Fall, Face lacerations Discharge - Sign-Out/Discharge Documenting (check all that apply): Patient Departure - Discharge Plan Condition: Good Disposition: HOME Patient Education Materials: Care For Your Stitches (ED), Facial Fracture (ED) , Fall Prevention (ED) Referrals: Jakub Mejia MD [Primary Care Provider] - Additional Instructions: Schedule a follow up appointment with your PCP Suture removal in 5-7 days Keep wound clean and dry Ice face intermittently to help with bruising and swelling Return to ER for redness, swelling, or drainage from wound or if new symptoms occur - Billing Disposition and Condition Condition: GOOD Disposition: Home
[2018-07-01 17:00] LABS: EGFR Non-African American 43.6 (>60)
[2018-07-01] MEDS ORDERED: Tetan/Diph/Pertus SYR(Tdap)* 0.5 ML SYR(BOOSTRIX) use SYR IM ONE (17:01)
--- NOTE | 2018-07-01 17:05 | RAD ---
Indication: Fall, head injury. CT of the brain performed without IV contrast. Ventricular structures are midline. No midline shift is noted. The extra-axial spaces are unremarkable. There is no evidence of intracranial mass or hemorrhage. No other high or low density lesions are identified. Mastoid air cells and paranasal sinuses are grossly unremarkable. IMPRESSION: No intracranial mass or hemorrhage is noted.
--- NOTE | 2018-07-01 17:06 | RAD ---
Indication: Fall, neck injury. CT of the cervical spine was obtained in the axial plane. Sagittal and coronal reconstructed images were obtained. The skull base demonstrates no fracture. Mastoid air cells are well aerated. The C1 ring is intact. The vertebral bodies appear normal in height. No evidence of compression fracture is noted. At C3-C4 spondylitic ridge is noted. Endplate sclerosis is noted. Disc space narrowing at C4-C5, C5-C6 and C6-C7 is noted with spondylytic ridge flattening the thecal sac. No fracture of the cervical spine is noted. The spinal canal does not appear to be. IMPRESSION: Multilevel degenerative disc disease is noted. No fracture of the cervical spine is noted.
--- NOTE | 2018-07-01 17:08 | RAD ---
Indication: Facial injury. CT of the facial bones was obtained in the axial plane. Sagittal and coronal reconstructed images were obtained. The skull base demonstrates no fracture. There may be some flattening of the nasal arch which may represent a minimal fracture of the nasal tip. Mastoid air cells unremarkable. Zygomatic arch and laterally is intact. Maxillary and pterygoid plates are unremarkable. Soft tissue swelling over the left for head is noted. The maxilla and pterygoid plates are unremarkable. IMPRESSION: Soft tissue swelling over the left for head. There may be some flattening of the anterior tip of the nasal arch which may represent nondisplaced fracture.
--- NOTE | 2018-07-01 17:12 | RAD ---
Indication: Syncope. Single view of the chest and straight hyperinflated lung krishnan. Fractures of the right eighth and ninth rib posteriorly is noted and fractures of left eighth rib posteriorly is noted which appear old. Pacemaker leads are in place. Lung krishnan are clear. When compared to previous exam of June 28, 2017 no significant change is noted. IMPRESSION: Hyperinflated lung krishnan without evidence of pneumonia.
[2018-07-01 18:31] VITALS: BP 145/83
== END 2018-07-01 18:29 | disposition home or self-care (01) ==
LOC: ED 15:13
DX: S01.81XA Laceration without foreign body of other part of head, initial encounter (principal); W19.XXXA Unspecified fall, initial encounter; Y93.01 Activity, walking, marching and hiking; Y92.89 Other specified places as the place of occurrence of the external cause; I25.10 Atherosclerotic heart disease of native coronary artery without angina pectoris; I10 Essential (primary) hypertension; E78.00 Pure hypercholesterolemia, unspecified; F43.10 Post-traumatic stress disorder, unspecified; J44.9 Chronic obstructive pulmonary disease, unspecified; Z23 Encounter for immunization; Z87.891 Personal history of nicotine dependence; Z88.8 Allergy status to other drugs, medicaments and biological substances
CPT/HCPCS: 12013; 36415; 70450; 70486; 71045; 72125; 80053; 83735; 84484; 85025; 90471; 90715; 93005; 99282

== ENCOUNTER 2019-07-12 15:43 | Emergency (ER) | payer OTHER ==
--- NOTE | 2019-07-12 15:55 | ED ---
Head Injury - HPI Summary HPI Summary: The patient is a 74 y/o M arriving by ambulance to [facility] with a chief complaint of fall this afternoon. He reports that he was walking and tripped, causing him to hit his head, to which he is now sustaining swelling, pain, and bleeding in the left maxilla and orbital area, as well as pain in the fifth finger of the left hand. He denies any loss of consciousness, chest pain, or hip pain. Per EMS , the patient was found disoriented after fall. Currently, the patient rates the pain 3/10 in severity. PMHx: thyroid disease, CHF, CAD, HTN, pacemaker, abdominal aortic aneurysm, COPD, peripheral neuropathy. Former smoker, no EtOH, no substance use. Medications reviewed. Allergies noted. - History Of Current Complaint Stated Complaint: FALL HEAD INJURY PER EMS Time Seen by Provider: 07/12/19 15:46 Hx Obtained From: Patient, EMS Mechanism Of Injury: Fall From A Standing Position Onset/Duration: Started Minutes Ago, Traumatic, Still Present Onset of Pain: Post Accident - fall Severity Currently: Moderate Severity Initially: Moderate Pain Intensity: 3 Pain Scale Used: 0-10 Numeric Location of Head Injury: Other: - left orbital and maxilla Character: Dull Aggravating Factor(s): Other: - nothing Alleviating Factor(s): Other: - nothing Associated Signs And Symptoms: Swelling, Other: - Positive: bleeding from head injury, pain in left fifth finger. Negative: loss of consciousness, chest pain, hip pain - Allergies/Home Medications Allergies/Adverse Reactions: Allergies Allergy/AdvReac Type Severity Reaction Status Date / Time ANTIDEPRESSANTS AdvReac Hallucinati Uncoded 10/12/17 11:29 ons OPIATES AdvReac Unknown Uncoded 10/12/17 11:29 Reaction Details PMH/Surg Hx/FS Hx/Imm Hx Endocrine/Hematology History: Reports: Hx Anticoagulant Therapy, Hx Thyroid Disease - PARTIAL THYROIDECTOMY Denies: Hx Diabetes Cardiovascular History: Reports: Hx Congestive Heart Failure, Hx Coronary Artery Disease, Hx Hypertension - controlled with medication, Hx Pacemaker/ICD, Other Cardiovascular Problems/Disorders - ABDOMINAL AORTIC ANYURISM, 2014 Denies: Hx Hypercholesterolemia Respiratory History: Reports: Hx Chronic Obstructive Pulmonary Disease (COPD) Denies: Hx Asthma GI History: Reports: Hx Irritable Bowel Denies: Hx Ulcer History: Reports: Other Problems/Disorders - cyst on kidney Denies: Hx Kidney Stones Musculoskeletal History: Reports: Hx Arthritis - SHOULDER, Hx Back Problems Sensory History: Reports: Hx Cataracts, Hx Contacts or Glasses, Other Sensory Impairments - dentures Denies: Hx Hearing Aid Opthamlomology History: Reports: Hx Cataracts, Hx Contacts or Glasses, Other Sensory Impairments - dentures Neurological History: Reports: Hx Headaches, Hx Nerve Disease - TWITCHES, Hx Peripheral Neuropathy, Other Neuro Impairments/Disorders - some dizziness and nausea in the past few months, PA[facility] PT Psychiatric History: Reports: Hx Anxiety - EXTREME, Hx Depression - EXTREME, Other Psychiatric Issues/Disorders - MAGGIE - Surgical History Surgical History: Yes Surgery Procedure, Year, and Place: PARTIAL THYROIDECTOMY. abdominal aortic aneurysm 2016 - [facility] [place]. cataracts Hx Anesthesia Reactions: No Infectious Disease History: No Infectious Disease History: Denies: Traveled Outside the [place] in Last 30 Days - Family History Known Family History: Positive: Hypertension - Social History Alcohol Use: None Hx Substance Use: No Substance Use Type: Reports: None Hx Tobacco Use: Yes Smoking Status (MU): Former Smoker Amount Used/How Often: 1 PPD FOR 50 YRS Review of Systems Positive: Other - swelling of left maxilla and surrounding orbital with active bleeding Negative: Chest Pain Positive: Other - Positive: pain in left fifth finger. Negative: hip pain. Neurological: Other - Positive: fall with head trauma. Negative: LOC. All Other Systems Reviewed And Are Negative: Yes Physical Exam - Summary Physical Exam Summary: VITAL SIGNS: Reviewed. GENERAL: Patient is a well-developed and nourished elderly male who is lying comfortable in the stretcher. Patient is not in any acute respiratory distress. HEAD AND FACE: Hematoma and ecchymosis in the left eyebrow. No or skull depressions. No sinus tenderness. EYES: PERRLA, EOMI x 2, No injected conjunctiva, no nystagmus. No photophobia. EARS: Hearing grossly intact. Ear canals and tympanic membranes are within normal limits. MOUTH: Oropharynx within normal limits. NECK: Supple, trachea is midline, no adenopathy, no JVD, no carotid bruit, no c- spine tenderness, neck with full ROM. No meningeal signs, no Kernig's or brudzinskis signs. CHEST: Symmetric, no tenderness at palpation. LUNGS: Clear to auscultation bilaterally. No wheezing or crackles. CVS: Regular rate and rhythm, S1 and S2 present, no murmurs or gallops appreciated. ABDOMEN: Soft, non-tender. No signs of distention. No rebound, no guarding, and no masses palpated. Bowel sounds are normal. EXTREMITIES: Deformity of the left pinky. FROM in all major joints, no edema, no cyanosis or clubbing. NEURO: Alert and oriented x 3. No acute neurological deficits. Speech is normal and follows commands. SKIN: Dry and warm. GCS: 15. Triage Information Reviewed: Yes Vital Signs Reviewed: Yes - [place] Coma Scale Best Eye Response: 4 - Spontaneous Best Motor Response: 6 - Obeys Commands Best Verbal Response: 5 - Oriented Coma Scale Total: 15 Procedures - Sedation Patient Received Moderate/Deep Sedation with Procedure: No - Joint Reduction Left Joint Reduction Site: other Specify Other Joint Reduced: left fifth finger Conscious Sedation: No Reduction Attempts: 1 Pre-Procedure NV Exam: Yes - neurovascular intact Post Joint Reduction Film: joint reduced Diagnostics - Laboratory Result Diagrams: 07/12/19 16:26 07/12/19 16:26 Lab Statement: Any lab studies that have been ordered have been reviewed, and results considered in the medical decision making process. - Radiology Left Fifth Finger X-ray Radiology Interpretation Completed By: Radiologist Summary of Radiographic Findings: Impression: Dorsal dislocation of the middle phalanx relative to the proximal phalanx at the PIP with associated volar base avulsion fracture which remains opposing the volar aspect of the head of the proximal phalanx. Surrounding soft tissue deformity and swelling. ED physician has reviewed this report. Left Fifth Finger X-ray (post procedure) Radiology Interpretation Completed By: ED Physician Summary of Radiographic Findings: Positive reduction of the dislocation. ED physician has interpreted this report. Pending official read. - CT Brain CT CT Interpretation Completed By: Radiologist Summary of CT Findings: Impression: 1. No CT evidence for traumatic brain injury. 2. Mild LEFT frontal and preseptal orbital swelling. No loculated hematoma or fracture evident. ED physician has reviewed this report. Cervical Spine CT CT Interpretation Completed By: Radiologist Summary of CT Findings: Impression: 1. No CT evidence for traumatic cervical spine injury. 2. 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 ED physician has reviewed this report. Maxillofacial CT CT Interpretation Completed By: Radiologist Summary of CT Findings: Impression: 1. Soft tissue edema/hematoma at the LEFT malar eminence and superficial to the zygomatic arch and extending cephalad at the preseptal orbital region and over the LEFT forehead. 2. Nondisplaced fracture involving the LEFT nasal bone and nasal process of the maxilla. ED physician has reviewed this report. - EKG 1554 Cardiac Rate: Other Rate - 66 bpm EKG Comparison: No Significant Change - Similar to previous taken on 07/01/18. Summary of EKG Findings: EKG at 1554 reveals atrial-ventricular dual-paced rhythm at [address] elevations. ED physician has reviewed and interpreted this EKG. Re-Evaluation - Re-Evaluation First Eval Re-Evaluation Time: 17:15 Change: Unchanged Comment: Performed reduction of fifth finger dislocation. Second Eval Re-Evaluation Time: 18:35 Change: Unchanged Comment: We discussed results and plan for discharge. Head Injury Course/Dx Assessment/Plan: Patient is a 74 y/o M with chief complaint of fall with head injury to the left orbital and maxilla without loss of consciousness. Left fifth finger also in pain and appears deformed. Blood work without any significant abnormality, slight anemia, BUN 28, creatinine 1.47, glucose 127. Urinalysis negative for UTI. I offered the patient IV fluids, but he declines and prefers to drink fluids. The patient reports that he had a mechanical fall. He tripped and fell. He denies any syncopal episodes, dizziness, chest pain or shortness of breath. Finger x ray IMPRESSION: Dorsal dislocation of the middle phalanx relative to the proximal phalanx at the PIP with associated volar base avulsion fracture which remains opposing the volar aspect of the head of the proximal phalanx. Surrounding soft tissue deformity and swelling. Heat CT IMPRESSION: 1. No CT evidence for traumatic brain injury. 2. Mild LEFT frontal and preseptal orbital swelling. No loculated hematoma or fracture evident. C spine CT IMPRESSION: 1. No CT evidence for traumatic cervical spine injury. 2. 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 Maxillofacial CT IMPRESSION: 2. Soft tissue edema/hematoma at the LEFT malar eminence and superficial to the zygomatic arch and extending cephalad at the preseptal orbital region and over the LEFT forehead. 2. Nondisplaced fracture involving the LEFT nasal bone and nasal process of the maxilla. Finger x ray s/ p reduction IMPRESSION: Positive reduction of the dislocation. The patient doesn t have any eye entrapment, visual changes or any other complaint. She has slight swelling and slight pain and he did not require any pain medications. Patient reports that he wants to follow-up with maxillofacial surgeon with the [facility] therefore, he will arrange with the [facility] PCP. At this point I discussed all the findings and test results with the patient. He was instructed to return to the emergency room immediately if any of the symptoms return or worsen. Patient understands and agrees. Neurological exam before discharge: Patient is alert and oriented x 3. No acute neurological deficits. Patient's vital signs are stable. Patient is to follow up with CPP in the next 2 3 days. They understand and agree. Plan of care was discussed with the patient and patient understands and agrees with the plan of care. All questions were answered at patient satisfaction. There were no further complaints or concerns. - Diagnoses Provider Diagnoses: Fall, Dislocation, finger Discharge ED - Sign-Out/Discharge Documenting (check all that apply): Patient Departure - Patient will be discharged home. - Discharge Plan Condition: Stable Disposition: HOME Patient Education Materials: Fall Prevention for Older Adults (ED), Finger Dislocation (ED) Referrals: Jakub Mejia MD [Primary Care Provider] - 3 Days Additional Instructions: Follow up with your primary care provider in 2-3 days. Follow up with your maxillofacial specialist as we discussed. Return to the emergency department for any new or worsening symptoms. - Billing Disposition and Condition Condition: STABLE Disposition: Home - Attestation Statements Document Initiated by Nakita: Yes Documenting Scribe: Yamileth Taylor Provider For Whom Nakita is Documenting (Include Credential): MD Andry Garneribe Attestation: Yamileth Tapia scribed for Dr. Celestino Sorto MD on 07/13/19 at 0907. Scribe Documentation Reviewed: Yes Provider Attestation: The documentation as recorded by the Yamileth oreilly accurately reflects the service I personally performed and the decisions made by me, Dr. Celestino Sorto MD Status of Scribe Document: Viewed
[2019-07-12 16:32] LABS: ABS Basophils 0.1 10^3/ul (0-0.2); ABS Eosinophils 0.4 10^3/ul (0-0.6); ABS Lymphocytes 1.1 10^3/ul (1.0-4.8); ABS Monocytes 0.6 10^3/ul (0-0.8); ABS Neutrophils 5.2 10^3/ul (1.5-7.7); Hematocrit 38 % (42-52); Hemoglobin 12.7 g/dL (14.0-18.0); Lymphocyte % 15.4 %; Mean Corpuscular HGB Conc 33 g/dL (31-36); Mean Corpuscular Hemoglobin 32 pg (27-31); Mean Corpuscular Volume 96 fL (80-94); Mean Platelet Volume 7.6 fL (7.4-10.4); Platelet Count 224 10^3/uL (150-450); Red Cell Distribution Width 14 % (10-15); White Blood Count 7.4 10^3/uL (3.5-10.8)
[2019-07-12 16:49] LABS: Albumin 3.9 g/dL (3.2-5.2); Albumin/Globulin Ratio 1.5 (1-3); Calcium 9.5 mg/dL (8.6-10.3); EGFR African American 56.4 (>60); EGFR Non-African American 46.6 (>60); Globulin 2.6 g/dL (2-4); Potassium 4.5 mmol/L (3.5-5.0); Total Bilirubin 0.4 mg/dL (0.2-1.0); Total Protein 6.5 g/dL (6.4-8.9)
[2019-07-12 17:02] LABS: Urine Appearance Clear; Urine Bilirubin Negative (Negative); Urine Blood Negative (Negative); Urine Color Yellow; Urine Glucose Negative (Negative); Urine Ketones Negative (Negative); Urine Nitrite Negative (Negative); Urine Protein Negative (Negative); Urine Specific Gravity 1.009 (1.010-1.030); Urine Urobilinogen Negative (Negative)
[2019-07-12] MEDS ORDERED: Tetan/Diph/Pertus SYR(Tdap)* 0.5 ML SYR(BOOSTRIX) use SYR contains LATEX IM ONE (18:37)
[2019-07-12 19:10] VITALS: BP 138/89
== END 2019-07-12 19:07 | disposition home or self-care (01) ==
LOC: ED 15:43
DX: S63.257A Unspecified dislocation of left little finger, initial encounter (principal); S02.2XXA Fracture of nasal bones, initial encounter for closed fracture; Z23 Encounter for immunization; W01.10XA Fall on same level from slipping, tripping and stumbling with subsequent striking against unspecified object, initial encounter; Y92.9 Unspecified place or not applicable; I11.0 Hypertensive heart disease with heart failure; I50.9 Heart failure, unspecified; I25.10 Atherosclerotic heart disease of native coronary artery without angina pectoris; E07.9 Disorder of thyroid, unspecified; J44.9 Chronic obstructive pulmonary disease, unspecified; G62.9 Polyneuropathy, unspecified; F41.9 Anxiety disorder, unspecified; F32.9 Major depressive disorder, single episode, unspecified; Z95.0 Presence of cardiac pacemaker; Z87.891 Personal history of nicotine dependence; Z88.5 Allergy status to narcotic agent; Z88.8 Allergy status to other drugs, medicaments and biological substances; Z79.82 Long term (current) use of aspirin; Z79.890 Hormone replacement therapy; Z79.899 Other long term (current) drug therapy
CPT/HCPCS: 26770; 36415; 70450; 70486; 72125; 73140; 80053; 81003; 85025; 90471; 90715; 93005; 99282